=== PATIENT | male | born 2000 | race Caucasian/White ===

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

== ENCOUNTER 2019-02-26 22:19 | Emergency (ER) | payer MEDICAID ==
[2019-02-26 22:34] VITALS: BMI 34.0
[2019-02-26] MEDS ORDERED: CIMZIA400 MG/2 M (22:35)
[2019-02-26] MEDS ORDERED: PEPCID AC20 MG (22:35)
[2019-02-26] MEDS ORDERED: TREXALL5 MG (22:35)
[2019-02-26] MEDS ORDERED: NAPROXEN250 MG (22:35)
[2019-02-27] MEDS ORDERED: NAPROSYN500 MG PO (01:24)
[2019-02-27 01:39] VITALS: BP 128/72
== END 2019-02-27 01:39 | disposition home or self-care (01) ==
LOC: D.ER 22:19
DX: S81.812A Laceration without foreign body, left lower leg, initial encounter (principal); W26.9XXA Contact with unspecified sharp object(s), initial encounter; Y93.89 Activity, other specified; Y92.89 Other specified places as the place of occurrence of the external cause